=== PATIENT | female | born 1940 | race Caucasian/White ===

== ENCOUNTER 2016-09-07 17:04 | Emergency (ER) | payer OTHER, MEDICARE ==
[~2016-09-07] VITALS: Ht 165.1 cm; Wt 54.4 kg
[~2016-09-07 17:04] MED LIST: ALPHAGANP OP; DORZ10DR10 OP; LATA2.5D6 OP
[2016-09-07 17:31] VITALS: BP 135/89; PULSE 73; RESP 16; TEMP 97.6; O2SAT 99
--- NOTE | 2016-09-07 17:39 | NUR ---
Patient triaged and placed in waiting room. VSS and patient appears in no acute distress at this time. Accompanied by SELF, awaiting available bed, and MD notified of need for MSE.
--- NOTE | 2016-09-07 20:10 | NUR ---
Patient to ER bed 6 to gown for evaluation. Side rails up.
--- NOTE | 2016-09-07 20:15 | NUR ---
PT C/O LOWER ABD PAIN 12/17 X1 DAY WITH NAUSEA AND VOMITING. DENIES DIARRHEA. DENIES FEVER. MD AWARE.
[2016-09-07 20:35] LABS: BLOOD, URINE 3+ (NEGATIVE); CLARITY/URINE HAZY (CLEAR); COLOR,URINE YELLOW (YELLOW); GLUCOSE,URINE NEGATIVE (NEGATIVE); KETONES,URINE 3+ (NEGATIVE); LEUKOCYTE ESTERASE ,URINE 1+ (NEGATIVE); NITRITE, URINE NEGATIVE (NEGATIVE); PROTEIN URINE 1+ (NEGATIVE); UROBILINOGEN,URINE 0.2 (0.2-1.0)
[2016-09-07 20:46] LABS: BILIRUBIN,URINE NEGATIVE (NEGATIVE)
[2016-09-07 20:47] LABS: BACTERIA,URINE MODERATE /HPF (None Seen); MUCUS,URINE 2+ /LPF (None Seen); URINE AMORPHOUS URATE 1+ /HPF (None Seen); WBC,URINE 50-80 /HPF (0-3)
--- NOTE | 2016-09-07 21:00 | NUR ---
ER Dr. Taveras at bedside examining patient.
[2016-09-07] MEDS ORDERED: cefTRIAXone 1 GM IVPB PREMIX 50 ML IV ONE (21:15)
[2016-09-07] MEDS ORDERED: ONDANSETRON HCL 4 MG/2 ML VIAL IVP ONE (21:45)
[2016-09-07 23:45] VITALS: BP 119/76; PULSE 70; RESP 16; TEMP 98.4; O2SAT 99
--- NOTE | 2016-09-07 23:45 | NUR ---
Patient given written and verbal discharge instructions and verbalizes understanding. ER MD discussed with patient the results and treatment provided. Patient in stable condition. ID arm band removed. IV catheter removed intact and dressing applied, no active bleeding. Rx of cipro given. Patient educated on pain management and to follow up with PMD. Pain Scale 0/10. Opportunity for questions provided and answered.
== END 2016-09-07 23:45 | disposition home or self-care (01) ==
LOC: SED 17:04
DX: N39.0 Urinary tract infection, site not specified (principal); Z90.49 Acquired absence of other specified parts of digestive tract; Z98.890 Other specified postprocedural states
CPT/HCPCS: 81000; 96365; 96375; 99284; J0696; J2405

== ENCOUNTER 2018-06-08 06:50 | Emergency (ER) | payer OTHER ==
[~2018-06-08] VITALS: Ht 162.6 cm; Wt 54.4 kg
[~2018-06-08 06:50] MED LIST changes: -LATA2.5D6 OP; +XALEYE OP
[2018-06-08 06:51] VITALS: BP_SYST 132
[2018-06-08] MEDS ORDERED: MORPHINE 4 MG/ML INJ. SYRINGE IVP ONE (07:00)
[2018-06-08 07:42] LABS: BASOPHILS % (AUTO) 0.2 % (0.0-2.0); HEMATOCRIT 40.2 % (36-48); HEMOGLOBIN 13.2 g/dL (12.0-16.0); LYMPHOCYTES % (AUTO) 9.4 % (20.5-51.5); MEAN CORPUSCULAR HEMOGLOBIN 31 pg (27-31); MEAN CORPUSCULAR HGB CONC 33 % (32-36); MEAN CORPUSCULAR VOLUME 93 fL (79.0-98.0); MONOCYTES # (AUTO) 0.6 K/uL (0.0-1.0); MONOCYTES % (AUTO) 5.6 % (1.7-9.3); NEUTROPHILS # (AUTO) 8.6 K/uL (1.8-7.7); NEUTROPHILS % (AUTO) 84.8 % (40.0-70.0); PLATELET COUNT (AUTO) 245 K/uL (130-430); RED BLOOD CELL COUNT(AUTO) 4.31 MIL/uL (4.2-6.2); RED CELL DISTRIBUTION WIDTH 12.8 % (9.0-15.0); WHITE BLOOD COUNT (AUTO) 10.2 K/uL (4.8-10.8)
[2018-06-08 07:54] LABS: ANION GAP 9 (5-15); CALCIUM 9.9 mg/dL (8.4-11.0); CHLORIDE 99 mmol/L (98-107); CREATININE 0.53 mg/dL (0.55-1.30); GLUCOSE 122 mg/dL (70-99); POTASSIUM 3.7 mmol/L (3.5-5.1); SODIUM SERUM 133 mmol/L (136-145); UREA NITROGEN, BLOOD 15 mg/dL (8-21)
[2018-06-08 08:01] LABS: PROTHROMBIN TIME 9.9 SECS (9.5-12.5)
[2018-06-08 08:09] LABS: ALANINE AMINOTRANSFERASE 38 U/L (12-78); ASPARTATE AMINOTRANSFERASE 30 U/L (10-37); TOTAL BILIRUBIN 1.1 mg/dL (0.0-1.0)
[2018-06-08] MEDS ORDERED: KETOROLAC TROMETHAMINE 60 MG/2 ML VIAL IM ONE (08:15)
[2018-06-08 09:00] VITALS: BP_SYST 153
== END 2018-06-08 09:00 | disposition home or self-care (01) ==
LOC: SED 06:50
DX: S39.091A Other injury of muscle, fascia and tendon of abdomen, initial encounter (principal); S00.83XA Contusion of other part of head, initial encounter; W01.0XXA Fall on same level from slipping, tripping and stumbling without subsequent striking against object, initial encounter; Y93.89 Activity, other specified; Y92.89 Other specified places as the place of occurrence of the external cause; Y99.8 Other external cause status
CPT/HCPCS: 36415; 71045; 73502; 80053; 82550; 83880; 84484; 85025; 85610; 85730; 93005; 96372; 99284; J1885; J2270